=== PATIENT | male | born 1995 | race Caucasian/White ===

== ENCOUNTER 2021-03-20 11:40 | Emergency (ER) | payer OTHER ==
[~2021-03-20] VITALS: Ht 177.8 cm; Wt 70.3 kg
--- OUTSIDE RECORDS SUMMARY | 2021-03-20 11:45 | XMS REPORT | Clinical Summary ---
Demographics Home Phone Preferred Language Malawian Marital Status Single Adventism Affiliation Unknown Race White Ethnic Group Not or Author [facility] Address Unknown Phone Unavailable Care Team Providers Care Tower Control Operator Name Role Phone PP Unavailable Allergies Not on File Medications Not on file Active Problems Not on file Social History Date Tobacco Use Types Packs/Day Years Used Never Assessed Sex Assigned at Date Recorded Not on file Plan of Treatment Not on file Results Not on filefrom Last 3 Months
--- OUTSIDE RECORDS SUMMARY | 2021-03-20 11:45 | XMS REPORT | Clinical Summary ---
Author Author [facility] Address Unknown Phone Unavailable Care Team Providers Care Breaker Up Machine Operator Name Role Phone PCP Unavailable Allergies No known active allergies Medications No known medications Active Problems Not on file Social History Date Tobacco Use Types Packs/Day Years Used Never Smoker Smokeless Tobacco: Current User Comments Alcohol Use Standard Drinks/Week socially Yes 0 (1 standard drink = 0.6 o z pure alcohol) Sex Assigned at Date Recorded Not on file Last Filed Vital Signs Reading Time Taken Comments Vital Sign 149/85 01/19/2018 8:05 PM CDT after cleaning a brasions Blood Pressure 92 01/19/2018 8:05 PM CDT Pulse 36.7 C (98 F) 01/19/2018 4:44 PM CDT Temperature 19 01/19/2018 8:05 PM CDT Respiratory Rate 100% 01/19/2018 8:05 PM CDT Oxygen Saturation - - Inhaled Oxygen Concentration 70.3 kg (155 lb) 01/19/2018 4:44 PM CDT Weight 177.8 cm (5' 10") 01/19/2018 4:44 PM CDT Height 22.24 01/19/2018 4:44 PM CDT Body Mass Index Plan of Treatment Health Maintenance Due Date Last Done Comments Varicella Vaccines (2 of 03/28/2001 01/03/2001 2 - 2-dose childhood series) HPV Vaccines (1 - Male 09/15/2006 2-dose series) COVID-19 Vaccine (1) 2007 Hepatitis C Screening 09/15/2013 DTaP,Tdap,and Td Vaccines 09/15/2014 (1 - Tdap) MMR Vaccines-Adult 09/15/2014 Influenza Vaccine (#1) 2021 05/29/2008 Pneumo-Vaccine: 65+Yrs (1 09/15/2060 of 1 - PPSV23) HIB Vaccines Aged Out No longer eligible based on patient's age to complete this topic IPV Vaccines Aged Out No longer eligible based on patient's age to complete this topic Meningococcal Vaccine Aged Out No longer eligib le based on patient's age to complete this topic Pneumo-Vaccine: Peds (0-5 Aged Out No longer el igible based on patient's age to Yrs) & At-Risk Patients complete this topic (6-64 Yrs) Rotavirus Vaccines Aged Out No longer eligible based on patient's age to complete this topic Results Not on filefrom Last 3 Months Insurance Type Payer Benefit Subscriber ID Effective Phone Address Plan / Dates Group AUTO PROGRESSIVE AUTO Effective [phone] [place] [address] AUTO PROGRESSIVE AUTO [id number] 2018-P [phone] [address] resent [address] [place] [address] PPO BCBS BCBS BLUE [id number] 2017-P [address] CHOICE resent TARYN GUPTA [id number] Advance Directives For more information, please contact: [phone] 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
--- OUTSIDE RECORDS SUMMARY | 2021-03-20 11:45 | XMS REPORT | Clinical Summary ---
Author Author [facility] Health Organization [facility] Address Unknown Phone Unavailable Care Team Providers Care Examining Officer Name Role Phone None, Pcp MD PCP Unavailable Source Comments [facility] (Labor and Delivery) documents [facility] Allergies Not on File Medications Please verify current medications with patient. Not on file Active Problems Not on file Social History Date Tobacco Use Types Packs/Day Years Used Never Assessed Sex Assigned at Date Recorded Not on file Last Filed Vital Signs Not on file Plan of Treatment Health Maintenance Due Date Last Done Comments HPV Vaccine (1 - Male 09/15/2006 2-dose series) COVID-19 Vaccine (1) 2007 Influenza Vaccine (#1) 2021 Pneumococcal Vaccine: Aged Out No longer eligib le based on patient's age to Pediatrics (0 to 5 Years) complete this topic and At-Risk Patients (6 to 64 Years) Results Not on filefrom Last 3 Months Insurance Type Payer Benefit Subscriber ID Effective Phone Address Plan / Dates Group LAMAR RODRIGUEZ [id number]-P LAMAR resent 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
[2021-03-20 12:10] VITALS: BP 134/80
[2021-03-20 13:23] LABS: BASOPHILS % (AUTO) 0 % (0-10); EOSINOPHILS % (AUTO) 0 % (0-10); HEMATOCRIT 45 % (40-54); HEMOGLOBIN 15.5 g/dL (13.3-17.7); LYMPHOCYTES # (AUTO) 0.6 10^3/uL (1.0-4.0); LYMPHOCYTES % (AUTO) 5 % (12-44); MEAN CORPUSCULAR HEMOGLOBIN 33 pg (25-34); MEAN CORPUSCULAR HGB CONC 35 g/dL (32-36); MEAN CORPUSCULAR VOLUME 94 fL (80-99); MEAN PLATELET VOLUME 11.6 fL (9.0-12.2); MONOCYTES % (AUTO) 8 % (0-12); NEUTROPHILS % (AUTO) 86 % (42-75); PLATELET COUNT 166 10^3/uL (130-400); WHITE BLOOD COUNT 12.8 10^3/uL (4.3-11.0)
[2021-03-20 13:26] LABS: ALBUMIN 4.8 GM/DL (3.2-4.5); CHLORIDE 100 MMOL/L (98-107); POTASSIUM 3.9 MMOL/L (3.6-5.0); SODIUM 136 MMOL/L (135-145)
--- NOTE | 2021-03-20 13:26 | ED General ---
General Chief Complaint: Head/Cervical Problems Stated Complaint: POSSIBLE MENINGITIS Source of Information: Patient Exam Limitations: No Limitations History of Present Illness Date Seen by Provider: Mar 20, 2021 Time Seen by Provider: 12:57 Initial Comments Here with report of concerns of possible meningitis. States that for the last 3 days he has actually had diarrhea with fatigue and headache. Had episode of bloody diarrhea yesterday or the day before and was seen at [facility]. They did stool testing and thought he may have a bacterial cause. He only had the one episode of bloody diarrhea and that has resolved. Usually drinks about 2 beers a day but has a drink for a few days. Denies shakiness or other problems with quitting. Has not had Covid vaccination. He does not wear a mask. He thinks he may have had Covid last year after contact with the person that he worked with came down with it. He states he came down with similar symptoms and then waited it out for a week at home and it finally went away. He has never been tested for Covid. Denies fevers but did have mild fever on arrival. States that he had some mild neck pain when he bends down but that is actually better today. Overall he was just concerned and presented for evaluation after calling his primary care office at the clinic and getting their recommendation. He is walking without difficulty. No problems with vision. Woke up with some bubbling in his stomach this morning and has had 1 small episode of diarrhea but otherwise that has resolved. States the other day when this started that he was not feeling well and had a mild headache and then went home and slept for quite a while. He did have some diarrhea during that time. Timing/Duration: 2-3 Days, Changing Over Time Severity: Moderate Associated Systoms: No Chest Pain, No Cough, No Fever/Chills; Headaches; No Nausea/Vomiting, No Shortness of Air Allergies and Home Medications Allergies Coded Allergies: No Known Drug Allergies (Unverified , 03/20/21) Patient Home Medication List Home Medication List Reviewed: Yes Review of Systems Review of Systems Constitutional: see HPI, fever (Noted here but not known by patient), other (Fatigue) EENTM: No nose congestion, No throat pain Respiratory: No cough, No short of breath Gastrointestinal: diarrhea, melena, nausea Genitourinary: No frequency, No pain Musculoskeletal: muscle pain, neck pain Skin: No change in color, No lesions Psychiatric/Neurological: Headache; Denies Pre-Existing Deficit All Other Systems Reviewed Negative Unless Noted: Yes Past Wgibxqb-Drhmei-Nxjgnc Hx Patient Social History Tobacco Use?: No Substance use?: Yes Substance type: Marijuana Alcohol Use?: No Alcohol type: Beer Alcohol Frequency: Daily (2 beers) Past Medical History Surgeries: Yes Appendectomy Respiratory: No Cardiac: No Neurological: No Gastrointestinal: No Musculoskeletal: No Endocrine: No HEENT: No Family Medical History Reviewed Nursing Family Hx No Pertinent Family Hx Physical Exam Vital Signs Vital Signs - First Documented 03/20/21 12:10 Temp 37.3 Pulse 76 Resp 20 B/P (MAP) 134/80 (98) Pulse Ox 100 O2 Delivery Room Air Capillary Refill : Height, Weight, BMI Height: '" Weight: lbs. oz. kg; BMI Method: General Appearance: No Apparent Distress, WD/WN HEENT: PERRL/EOMI, TMs Normal, Pharynx Normal Neck: Full Range of Motion, Normal Inspection, Non Tender, Supple; No Lymphadenopathy (L), No Lymphadenopathy (R) Respiratory: Lungs Clear, Normal Breath Sounds Cardiovascular: Regular Rate, Rhythm, No Murmur Gastrointestinal: Non Tender, Soft Back: Normal Inspection, No CVA Tenderness, No Vertebral Tenderness Extremity: Normal Range of Motion, Non Tender Neurologic/Psychiatric: Alert, Oriented x3 Skin: Normal Color, Warm/Dry Progress/Results/Core Measures Suspected Sepsis SIRS Temperature: Pulse: Respiratory Rate: Laboratory Tests 03/20/21 12:40: White Blood Count 12.8H Blood Pressure / Mean: Laboratory Tests 03/20/21 12:40: Creatinine 1.13, Platelet Count 166, Total Bilirubin 0.5 Results/Orders Lab Results Laboratory Tests Test 03/20/21 12:40 Range/Units White Blood Count 12.8 H 4.3-11.0 10^3/uL Red Blood Count 4.77 4.30-5.52 10^6/uL Hemoglobin 15.5 13.3-17.7 g/dL Hematocrit 45 40-54 % Mean Corpuscular Volume 94 80-99 fL Mean Corpuscular Hemoglobin 33 25-34 pg Mean Corpuscular Hemoglobin Concent 35 32-36 g/dL Red Cell Distribution Width 11.8 10.0-14.5 % Platelet Count 166 130-400 10^3/uL Mean Platelet Volume 11.6 9.0-12.2 fL Immature Granulocyte % (Auto) 1 % Neutrophils (%) (Auto) 86 H 42-75 % Lymphocytes (%) (Auto) 5 L 12-44 % Monocytes (%) (Auto) 8 0-12 % Eosinophils (%) (Auto) 0 0-10 % Basophils (%) (Auto) 0 0-10 % Neutrophils # (Auto) 11.0 H 1.8-7.8 10^3/uL Lymphocytes # (Auto) 0.6 L 1.0-4.0 10^3/uL Monocytes # (Auto) 1.0 0.0-1.0 10^3/uL Eosinophils # (Auto) 0.0 0.0-0.3 10^3/uL Basophils # (Auto) 0.0 0.0-0.1 10^3/uL Immature Granulocyte # (Auto) 0.1 0.0-0.1 10^3/uL Neutrophils % (Manual) 62 % Lymphocytes % (Manual) 7 % Monocytes % (Manual) 7 % Eosinophils % (Manual) 0 % Basophils % (Manual) 0 % Band Neutrophils 24 % Blood Morphology Comment NORMAL Erythrocyte Sedimentation Rate 5 0-15 MM/HR Sodium Level 136 135-145 MMOL/L Potassium Level 3.9 3.6-5.0 MMOL/L Chloride Level 100 98-107 MMOL/L Carbon Dioxide Level 22 21-32 MMOL/L Anion Gap 14 5-14 MMOL/L Blood Urea Nitrogen 12 7-18 MG/DL Creatinine 1.13 0.60-1.30 MG/DL Estimat Glomerular Filtration Rate 79 BUN/Creatinine Ratio 11 Glucose Level 94 70-105 MG/DL Calcium Level 10.1 8.5-10.1 MG/DL Corrected Calcium 8.5-10.1 MG/DL Total Bilirubin 0.5 0.1-1.0 MG/DL Aspartate Amino Transf (AST/SGOT) 30 5-34 U/L Alanine Aminotransferase (ALT/SGPT) 24 0-55 U/L Alkaline Phosphatase 49 40-136 U/L C-Reactive Protein High Sensitivity 7.36 H 0.00-0.50 MG/DL Total Protein 8.4 H 6.4-8.2 GM/DL Albumin 4.8 H 3.2-4.5 GM/DL Procalcitonin 0.26 H <0.10 NG/ML Influenza Type A (RT-PCR) Not Detected Not Detecte Influenza Type B (RT-PCR) Not Detected Not Detecte SARS-CoV-2 RNA (RT-PCR) Not Detected Not Detecte My Orders Orders - SARNA CHICAS MD Cbc With Automated Diff (03/20/21 13:04) Comprehensive Metabolic Panel (03/20/21 13:04) Hs C Reactive Protein (03/20/21 13:04) Erythrocyte Sedimentation Rate (03/20/21 13:04) Ed Iv/Invasive Line Start (03/20/21 13:04) Procalcitonin (Pct) (03/20/21 13:04) Covid 19 Inhouse Test (03/20/21 13:04) Influenza A And B By Pcr (03/20/21 13:04) Lactated Ringers (Lr 1000 Ml Iv Solution (03/20/21 13:30) Manual Differential (03/20/21 12:40) Medications Given in ED Current Medications Medications Dose Ordered Sig/Tanvir Route Start Time Stop Time Status Last Admin Dose Admin Lactated Ringer's 1,000 ml @ 0 mls/hr Q0M ONCE IV 03/20/21 13:30 03/20/21 13:31 DC 03/20/21 13:38 0 MLS/HR Vital Signs/I&O 03/20/21 12:10 Temp 37.3 Pulse 76 Resp 20 B/P (MAP) 134/80 (98) Pulse Ox 100 O2 Delivery Room Air Capillary Refill : Progress Note : Progress Note Seen and evaluated. IV, labs, Covid and influenza testing ordered. LR 1 L bolus. Patient declined pain medicine. The patient exam does not show findings concerning for meningitis currently. He does have full range of motion of the neck with only some mild lateral tenderness. We did talk about different causes for what he is feeling and we will continue to check that through evaluation. If this remains a concern for meningitis then we will pursue CT scan and lumbar puncture if indicated. Patient was okay with that and states he is pretty nervous about the potential for lumbar puncture. Monitor patient. 1510: Patient is overall feeling much better. I did get results of labs from yesterday's visit [place] [facility] [place]. His white count yesterday was 15.95 with hemoglobin of 15, neutrophil percent at 90% and absolute neutrophil count of 14.38. Comparison labs for today are all improved. Chemistry functions yesterday were normal overall. C. difficile was negative. He did have Hemoccult blood sample that was positive yesterday. I did talk with him about approaches to care. Since he is overall feeling better he would like to pursue conservative management. He does not have physical exam findings consistent with meningitis. He does have history and laboratory findings of GI disorder that will need to be followed further. I did discuss follow-up with the surgeon listed or of his choosing for recheck and further evaluation including colonoscopy. Patient states he will consider that. Discharged home with return precautions. Patient verbalized understanding instructions and agreement with plan. Departure Impression Primary Impression: Viral syndrome Additional Impression: Gastrointestinal disorder Disposition: HOME, SELF-CARE Condition: Stable Departure-Patient Inst. Decision time for Depature: 15:13 Referrals: NO,LOCAL PHYSICIAN (PCP/Family) Primary Care Physician Patient Instructions: Viral Gastroenteritis, Adult (DC), Viral Meningitis, Adult (DC), Bacterial Meningitis, Adult (DC) Add. Discharge Instructions: All discharge instructions reviewed with patient and/or family. Voiced understanding. While you do not have significant findings for meningitis currently, this would still be a consideration if you had increasing neck pain, increasing headache, vision or balance disturbances, worsening fever or vomiting. If you are experiencing any of this, you should return immediately for further evaluation. Otherwise rest at home for the next few days. Drink plenty of fluids. You may take Tylenol and/or ibuprofen as needed for fever pain control per package directions. Return for worse pain, fever, vomiting, weakness, breathing problems or other concerns as needed. SARAN CHICAS MD Mar 20, 2021 13:25
[2021-03-20 13:27] LABS: CALCIUM 10.1 MG/DL (8.5-10.1)
[2021-03-20 13:29] LABS: GLUCOSE 94 MG/DL (70-105); TOTAL PROTEIN 8.4 GM/DL (6.4-8.2)
[2021-03-20 13:30] LABS: BILIRUBIN,TOTAL 0.5 MG/DL (0.1-1.0); CARBON DIOXIDE 22 MMOL/L (21-32)
[2021-03-20] MEDS ORDERED: LACTATED RINGERS 1,000 ML IV ONE (13:30)
[2021-03-20 13:32] LABS: ALKALINE PHOSPHATASE 49 U/L (40-136); CREATININE SERUM 1.13 MG/DL (0.60-1.30); GFR ESTIMATED 79
[2021-03-20 13:33] LABS: BUN/CREATININE RATIO 11
[2021-03-20 13:35] LABS: ALANINE AMINOTRANSFERASE 24 U/L (0-55)
[2021-03-20 13:46] LABS: BAND NEUTROPHILS 24 %; BASOPHILS % (MANUAL) 0 %; EOSINOPHILS % (MANUAL) 0 %; ERYTHROCYTE SEDIMENTATION RATE 5 MM/HR (0-15); LYMPHOCYTES % (MANUAL) 7 %; MONOCYTES % (MANUAL) 7 %; NEUTROPHILS % (MANUAL) 62 %; RBC MORPH NORMAL
== END 2021-03-20 15:38 | disposition home or self-care (01) ==
LOC: EDUNIT# 11:40 → ER 11:42
DX: B34.9 Viral infection, unspecified (principal); K92.9 Disease of digestive system, unspecified; Z20.822 Contact with and (suspected) exposure to COVID-19
CPT/HCPCS: 36415; 80053; 84145; 85007; 85027; 85652; 86141; 87636

== ENCOUNTER 2021-12-14 19:04 | Emergency (ER) | payer SELFPAY ==
[~2021-12-14] VITALS: Ht 177.8 cm; Wt 72.7 kg
[2021-12-14 19:25] VITALS: BP 135/83
[2021-12-14] MEDS ORDERED: HYDROcodone/APAP 5 MG/325 MG (LORTAB) TAB PO ONE (19:30)
--- NOTE | 2021-12-14 19:33 | ED Upper Extremity ---
General Stated Complaint: RIGHT HAND INJURY Source: patient Exam Limitations: no limitations History of Present Illness Date Seen by Provider: Dec 14, 2021 Time Seen by Provider: 19:30 Initial Comments Patient is a 26-year-old male who presents ED with right hand injury. Patient states 2 hours ago he punched a mirror. Patient would not tell me why he punc hed a mirror. This resulted in abrasions to his right hand on the dorsum side of his ring and little finger. Patient states he is concerned for a possible bony fracture on the right dorsum hand with prominence of a bony structure to his hand. He is able to move his digits with pain to discomfort. Denies taking thing for pain. Up-to-date on his tetanus within the past 5 years. Patient denies taking any for pain. Patient denies cough, chills, nausea, vomiting, diarrhea Allergies and Home Medications Allergies Coded Allergies: No Known Drug Allergies (Unverified , 03/20/21) Patient Home Medication List Home Medication List Reviewed: Yes Hydrocodone/Acetaminophen (Hydrocodone-Acetamin 5-325 mg) 5 Mg-325 Mg Tablet, 1 TAB PO Q4H PRN for PAIN-MODERATE (5-7) Prescribed by: EMILE VASQUEZ on 12/14/212033 Ibuprofen (Ibuprofen) 800 Mg Tablet, 800 MG PO Q8H Prescribed by: EMILE VASQUEZ on 12/14/212034 Review of Systems Constitutional: No chills, No diaphoresis, No malaise, No weakness EENTM: No hearing loss, No blurred vision, No double vision Respiratory: No cough, No dyspnea on exertion Cardiovascular: No chest pain Gastrointestinal: No abdominal pain, No diarrhea, No nausea, No vomiting Genitourinary: No decreased output, No discharge Musculoskeletal: joint pain, joint swelling, muscle pain Skin: change in color, other (Abrasions to the right hand) All Other Systems Reviewed Negative Unless Noted: Yes Past Frgaitu-Zydslq-Qaxpqd Hx Immunizations Up To Date First/Initial COVID19 Vaccinat: NONE Second COVID19 Vaccination Randy: NONE Past Medical History Surgery/Hospitalization HX: APPENDECTOMY Surgeries: Yes Appendectomy Respiratory: No Cardiac: No Neurological: No Gastrointestinal: No Musculoskeletal: No Endocrine: No HEENT: No Family Medical History No Pertinent Family Hx Physical Exam Vital Signs Vital Signs - First Documented 12/14/21 19:25 Temp 37.0 Pulse 58 Resp 20 B/P (MAP) 135/83 (100) Capillary Refill : Height, Weight, BMI Height: '" Weight: lbs. oz. kg; 22.00 BMI Method: General Appearance: WD/WN, no apparent distress HEENT: PERRL/EOMI, normal ENT inspection, TMs normal, pharynx normal Neck: non-tender, full range of motion, supple, normal inspection Cardiovascular: regular rate, rhythm, no edema, no gallop, no JVD Respiratory: chest non-tender, lungs clear, normal breath sounds, no respiratory distress, no accessory muscle use Gastrointestinal: normal bowel sounds, non tender, soft, no organomegaly Back: normal inspection Elbow/Forearm: normal inspection, non-tender, normal ROM Wrist: Yes normal inspection, Yes non-tender, Yes no evidence of injury Hand: Right, bone tenderness (Right fifth metacarpal, fourth and fifth MCP joint), laceration (Abrasions to the right dorsum ring finger and right little finger), soft tissue tenderness, stiffness, swelling Neurologic/Tendon: normal sensation Skin: other (Abrasions to the right hand.) Progress/Results/Core Measures Results/Orders My Orders Orders - TY NAVAS Hand, Right, 3 Views (12/14/21 19:29) Hydrocodone/Apap 5/325 Tablet (Lortab 5 (12/14/21 19:30) Medications Given in ED Current Medications Medications Dose Ordered Sig/Tanvir Route Start Time Stop Time Status Last Admin Dose Admin Acetaminophen/ Hydrocodone Bitart 1 ea ONCE ONCE PO 12/14/21 19:30 12/14/21 19:31 DC 12/14/21 19:46 1 EA Vital Signs/I&O 12/14/21 19:25 Temp 37.0 Pulse 58 Resp 20 B/P (MAP) 135/83 (100) Departure Communication (PCP) X-ray shows acute comminuted mildly displaced and angulated fracture involving the base of the fifth metacarpal with probable intra-articular extension to the fifth CMC joint. Patient had abrasions cleaned up here in the ER. No sutures needed. Refer used ulnar gutter splint. Discussed with patient this may not heal appropriately and may have long-term complications. Patient acknowledges. Patient was requesting be discharged. Patient was wanting to return to work. Discussed limited use of this hand to allow healing. Patient knowledges. Discussed outpatient ulnar gutter splint that he may get to help support. Was given a few days worth of pain medication. Recommend ice and elevate. 4 times a day. Did provide orthopedic follow-up. Offered again for a splint patient refused Impression Primary Impression: Hand fracture Disposition: HOME, SELF-CARE Condition: Stable Departure-Patient Inst. Decision time for Depature: 20:16 Referrals: NO,LOCAL PHYSICIAN (PCP) Primary Care Physician CANDI PUTNAM MD Patient Instructions: Hand Fracture ED Scripts Ibuprofen (Ibuprofen) 800 Mg Tablet 800 MG PO Q8H, #16 TAB Prov: TY NAVAS 12/14/21 Hydrocodone/Acetaminophen (Hydrocodone-Acetamin 5-325 mg) 5 Mg-325 Mg Tablet 1 TAB PO Q4H PRN for PAIN-MODERATE (5-7), #8 TAB Prov: TY NAVAS 12/14/21 Work/School Note: Work Release Form Date Seen in the Emergency Department: Dec 14, 2021 Return to Work: Dec 15, 2021 Other Restrictions Listed Below: light duty right hand TY NAVAS Dec 14, 2021 19:32
[2021-12-14] MEDS ORDERED: ACHD5005 PO (20:34)
[2021-12-14] MEDS ORDERED: IBUP-1780 PO (20:35)
--- NOTE | 2021-12-14 20:41 | Diagnostic Imaging Report ---
INDICATION: Hand pain COMPARISON: None available. TECHNIQUE: 3 radiographs of the right hand dated 12/14/2021. FINDINGS: Acute comminuted fracturing is identified involving the proximal shaft and base of the 5th metacarpal. Mild apex posterior angulation. Some fracture fragments are slightly anteriorly displaced. There is resulting slight foreshortening of the 5th metacarpal. This is associated with overlying soft tissue swelling. Fracture likely extends to the articular surface. No additional fracture or dislocation. IMPRESSION: Acute comminuted mildly displaced and angulated fracture involving the base of the 5th metacarpal with probable intra-articular extension to the 5th CMC joint. Dictated by: Dictated on workstation # [id number]
== END 2021-12-14 21:00 | disposition home or self-care (01) ==
LOC: EDUNIT# 19:04 → ER 19:08
DX: S62.316A Displaced fracture of base of fifth metacarpal bone, right hand, initial encounter for closed fracture (principal); Z28.310 Unvaccinated for COVID-19; W22.8XXA Striking against or struck by other objects, initial encounter
CPT/HCPCS: 73130

== ENCOUNTER → 2022-04-28 | Outpatient (REF) ==
[~2022-04-28] MED LIST: ACHD5005 PO; IBUP-1780 PO
--- NOTE | 2022-04-28 08:58 | Diagnostic Imaging Report ---
HISTORY: Right ankle injury, right ankle pain. COMPARISON: None TECHNIQUE: 3 views of the right ankle FINDINGS: There are small calcifications to the lateral aspect of the calcaneus. These may represent age-indeterminate avulsion fractures. No other acute fracture is seen in the right ankle. Alignment appears normal. Joint spaces are preserved. There is a large tibiotalar joint effusion. There is mild lateral soft tissue swelling. No cortical erosions are seen. IMPRESSION: 1. Calcifications lateral side of the calcaneus, could represent avulsion fractures or may be from remote trauma. 2. Large right tibiotalar joint effusion. 3. Mild lateral soft tissue swelling. Dictated by: Dictated on workstation # [id number]
== END | disposition home or self-care (01) ==
LOC: OCC 08:26
PROVIDERS: ATTEND Nurse Practitioner Family
DX: Z01.818 Encounter for other preprocedural examination (principal)
CPT/HCPCS: 73610